=== PATIENT | female | born 1985 | race Caucasian/White ===

== ENCOUNTER 2024-02-27 18:15 | Inpatient (IN) | payer BC, OTHER ==
[2024-02-27 18:21] VITALS: BMI 26.9
[2024-02-27 19:57] LABS: BASO % 0.5 % (0-2.0); HEMATOCRIT 39.7 % (32.4-45.2); HEMOGLOBIN 13.4 GM/dL (10.7-15.3); LYMPH % 35.7 % (8-40); MCH 29.2 pg (25.7-33.7); MCHC 33.9 g/dl (32.0-36.0); MEAN CELL VOLUME 86.1 fl (80-96); MEAN PLT VOLUME 6.8 fl (7.5-11.1); MONO % 5.8 % (3.8-10.2); PLATELET COUNT 287 10^3/uL (134-434); RBC 4.61 M/mm3 (3.60-5.2); RDW 13.1 % (11.6-15.6); WHITE BLOOD COUNT 7.3 K/mm3 (4.0-10.0)
[2024-02-27] MEDS ORDERED: MIDAZOLAM HCL 2 MG/2 ML SINGLE DOSE VIAL ONE (21:28)
[2024-02-27] MEDS ORDERED: FENTANYL CITRATE/PF 50 MCG/ML VIAL ONE (21:36)
[2024-02-27] MEDS ORDERED: PROPOFOL 20 ML ONE (21:37)
[2024-02-27] MEDS ORDERED: SUCCINYLCHOLINE CHLORIDE 200 MG/10 ML SYRINGE ONE (21:37)
[2024-02-27] MEDS: ceFAZolin SODIUM 1 GM VIAL IVPB ONE (21:43)
[2024-02-27] MEDS ORDERED: ONDANSETRON 4 MG/2 ML VIAL ONE (21:52)
[2024-02-27] MEDS ORDERED: DEXAMETHASONE SOD PHOSPHATE 4 MG/1 ML VIAL ONE (21:52)
[2024-02-27] MEDS ORDERED: ONDANSETRON 4 MG/2 ML VIAL IVPUSH PRN (22:11)
[2024-02-27] MEDS ORDERED: oxyCODONE HCL 5 MG TABLET PO PRN (22:11)
[2024-02-27 22:22] VITALS: TEMP 97.3
[2024-02-27] MEDS: LACTATED RINGERS SOLUTION 1,000 ML IV SCH (22:39)
[2024-02-27 22:40] VITALS: BP 118/65; PULSE 54; RESP 15
[2024-02-28] MEDS: ACETAMINOPHEN 325 MG TABLET (FP) PO PRN (00:22)
== END 2024-02-28 00:33 | disposition home or self-care (01) | DRG 770 ==
LOC: JER 18:15 → JERBED 19:40 → J3W 22:30
PROVIDERS: ADMIT Obstetrics & Gynecology; ATTEND Obstetrics & Gynecology
PROC: 10D17ZZ Extraction of Products of Conception, Retained, Via Natural or Artificial Opening (ICD-10-PCS; principal; 2024-02-27 21:00)
DX: O02.1 Missed abortion (principal)
CPT/HCPCS: 36415; 85025; 86850; 86900; 86901; 88305-TC; 94760; 99285-25